=== PATIENT | female | born 1965 | race Caucasian/White ===

== ENCOUNTER 2024-03-26 18:58 | Emergency (ER) | payer SELFPAY ==
[2024-03-26] MEDS ORDERED: FUROSEMIDE 40 MG/4 ML VIAL ONE (20:03)
[2024-03-26] MEDS ORDERED: FUROSEMIDE 20 MG/ 2ML VIAL ONE (20:03)
[2024-03-26 20:36] LABS: Absolute Eosinophils 0.2 K/uL (0-0.5); Absolute Lymphocytes (CBC) 2.5 K/uL (0.7-4.9); Absolute Monocytes 0.7 K/uL (0.1-1.3); Absolute Neutrophil 5.8 K/uL (1.8-8.0); Basophils % 0.5 % (0-1.3); Eosinophils % 2.3 % (0-4.4); Hematocrit 35.3 % (36.0-45.0); Hemoglobin 11.6 g/dL (12.0-15.0); Lymphocytes % 27.3 % (15.3-44.8); MCH 25.4 pg (27.0-35.0); MCHC 32.9 g/dL (32.0-36.0); MCV 77.1 fL (80-100); MPV 7.8 fL (7.6-11.3); Monocytes % 7.4 % (3.3-12.3); Neutrophils % 62.5 % (41.7-73.7); Nucleated Red Blood Cells % 0.1 % (0-0); Platelets 345 thou/uL (152-406); RBC Red Blood Cell Count 4.59 M/uL (3.86-4.86); Red Cell Distribution Width 16.6 % (12.1-15.2)
--- NOTE | 2024-03-26 20:44 | RAD REPORT ---
EXAM DESCRIPTION: RAD - Chest Single View - 03/26/2024 8:38 pm CLINICAL HISTORY: Chest pain;SOB Chest pain. COMPARISON: <Comparisons> FINDINGS: Portable technique limits examination quality. The lungs are grossly clear. The heart is normal in size. No displaced fractures. IMPRESSION: No acute intrathoracic process suspected.
[2024-03-26 20:55] LABS: Magnesium 2.4 mg/dL (1.6-2.4); Troponin High Sensitivity 5.9 pg/mL (<58.9)
[2024-03-26] MEDS ORDERED: POTASSIUM 25 MEQ EFFERV TAB ONE (21:01)
--- NOTE | 2024-03-26 21:40 | ER ---
Nurse's Notes [facility] Name: Irma Xiao Age: 58 yrs Sex: Female : 1965 Arrival Date: 03/26/2024 Time: 18:58 Bed 11 Private MD: Diagnosis: Localized edema;Onychomycosis, left toenails Presentation: 03/26 19:32 Chief complaint: Patient states: Pt c/o swelling from knees to feet in bilateral lower tl4 legs x 'weeks'. Pt states she gets pain when she puts pressure on feet. Pt denies CP, SOB. Coronavirus screen: At this time, the client does not indicate any symptoms associated with coronavirus-19. Ebola Screen: No symptoms or risks identified at this time. Initial Sepsis Screen: Does the patient meet any 2 criteria? No. Patient's initial sepsis screen is negative. Does the patient have a suspected source of infection? No. Patient's initial sepsis screen is negative. Risk Assessment: Do you want to hurt yourself or someone else? Patient reports no desire to harm self or others. Onset of symptoms is unknown. 19:32 Method Of Arrival: Ambulatory tl4 19:32 Acuity: GIANNA 3 tl4 Triage Assessment: 19:37 General: Appears in no apparent distress. Behavior is calm, cooperative. Pain: Denies tl4 pain. EENT: No signs and/or symptoms were reported regarding the EENT system. Neuro: Level of Consciousness is awake, alert, obeys commands, Oriented to person, place, time, situation, Moves all extremities. Full function Gait is steady, Speech is normal. Cardiovascular: Capillary refill < 3 seconds Patient's skin is warm and dry. edema in both lower legs. Respiratory: Airway is patent Respiratory effort is even, unlabored, Respiratory pattern is regular, symmetrical. GI: No signs and/or symptoms were reported involving the gastrointestinal system. : No signs and/or symptoms were reported regarding the genitourinary system. Derm: No signs and/or symptoms reported regarding the dermatologic system. Musculoskeletal: Swelling present in right leg and left leg. Historical: - Allergies: 19:34 No Known Allergies; tl4 - Home Meds: 19:34 levothyroxine 125 mcg capsule 1 cap daily [Active]; losartan oral [Active]; tl4 Hydrochlorothiazide Oral [Active]; escitalopram oxalate oral [Active]; atorvastatin oral [Active]; Primidone Oral [Active]; - PMHx: 19:34 Hypothyroidism; Hypertensive disorder; Anxiety; Hypercholesterolemia; Restless Leg tl4 Syndrome; - Immunization history:: Adult Immunizations unknown. - Infectious Disease History:: Denies. - Social history:: Smoking status: Patient denies any tobacco usage or history of. Screenin:46 [facility] ED Fall Risk Assessment (Adult) History of falling in the last 3 months, mb9 including since admission No falls in past 3 months (0 pts) Confusion or Disorientation No (0 pts) Intoxicated or Sedated No (0 pts) Impaired Gait No (0 pts) Mobility Assist Device Used No (0 pt) Altered Elimination No (0 pt) Score/Fall Risk Level 0 - 2 = Low Risk Oriented to surroundings, Maintained a safe environment, Educated pt \T\ family on fall prevention, incl call for assistance when getting out of bed. Abuse screen: Denies threats or abuse. Nutritional screening: No deficits noted. Tuberculosis screening: No symptoms or risk factors identified. Assessment: 20:10 General: Appears in no apparent distress. Behavior is calm, cooperative. Pain: Denies mb9 pain. Neuro: Richardson Agitation-Sedation Scale (RASS): 0 - Alert and Calm Level of Consciousness is awake, alert, obeys commands, Oriented to person, place, time, situation, Appropriate for age. Cardiovascular: Heart tones S1 S2 present Patient's skin is warm and dry. Cardiovascular: Pulses are 1+ in right posterior tibial artery, right dorsalis pedis artery, left posterior tibial artery and left dorsalis pedis artery Edema pitting to right foot and left foot. Respiratory: Airway is patent Respiratory effort is even, unlabored, Respiratory pattern is regular, symmetrical, Breath sounds are clear bilaterally. GI: No signs and/or symptoms were reported involving the gastrointestinal system. : No signs and/or symptoms were reported regarding the genitourinary system. EENT: No signs and/or symptoms were reported regarding the EENT system. Derm: Skin is pink, warm \T\ dry. Musculoskeletal: Swelling present in right leg and left leg. Vital Signs: 19:32 BP 159 / 77; Pulse 75; Resp 16; Temp 97.6(O); Pulse Ox 99% on R/A; Weight 117.93 kg; tl4 Height 5 ft. 7 in. ; Pain 0/10; 21:53 BP 145 / 75; Pulse 70; Resp 18; Pulse Ox 99% on R/A; mb9 19:32 Body Mass Index 40.72 (117.93 kg, 170.18 cm) tl4 19:32 Pain Scale: Adult tl4 ED Course: 19:05 Patient arrived in ED. im 19:34 Triage completed. tl4 19:40 Arm band placed on right wrist. tl4 19:43 Blanca العلي, TIMMY is Primary Nurse. mb9 19:46 Placed in gown. Bed in low position. Call light in reach. Side rails up X 1. Provided mb9 Education on: press call light if needing anything. Client placed on continuous cardiac and pulse oximetry monitoring. NIBP monitoring applied. 19:54 Carolina Lion PA-C is PHCP. sb4 19:54 Dae Flynn MD is Attending Physician. sb4 20:11 No provider procedures requiring assistance completed. mb9 20:33 Inserted saline lock: 20 gauge in right antecubital area, using aseptic technique. kj2 Blood collected. 20:40 XRAY Chest (1 view) In Process Unspecified. EDMS 20:44 Initial lab(s) drawn, by me, sent to lab. mb9 21:45 IV discontinued, intact, bleeding controlled, No redness/swelling at site. Pressure mb9 dressing applied. Administered Medications: 20:34 Drug: Furosemide IVP 60 mg IVP once; give over 2 minutes Route: IVP; Site: right kj2 antecubital; 21:00 Follow up: Response: No adverse reaction mb9 21:04 Drug: Potassium PO Effervescent Tablet 50 mEq PO once; dissolve in 4 ounces of water or mb9 juice Route: PO; 21:54 Follow up: Response: No adverse reaction mb9 Medication: 19:47 VIS not applicable for this client. mb9 Outcome: 21:39 Discharge ordered by . sb4 21:45 Discharged to home ambulatory, with family, mb9 21:45 Condition: stable 21:45 Discharge instructions given to patient, Instructed on discharge instructions, follow up and referral plans. Demonstrated understanding of instructions, follow-up care, medications, Prescriptions given X 3, 21:53 Patient left the ED. mb9 Signatures: Dispatcher [employer] EDMS Carolina Lion PA-C PA-C sb4 Zohra, Blanca Ayala, RN RN mb9 Lakesha Power Toni, RN RN tl4 Bianca Nolan RN RN kj2
--- NOTE | 2024-03-26 21:40 | EDPHYS ---
Physician Documentation [facility] Name: Irma Xiao Age: 58 yrs Sex: Female : 1965 Arrival Date: 03/26/2024 Time: 18:58 Bed 11 Private MD: MINERVA Physician Dae Flynn HPI: 03/26 20:08 This 58 yrs old Female presents to ER via Ambulatory with complaints of Feet Swelling. sb4 20:08 The patient presents with pain, swelling. The complaints affect the right leg and left sb4 leg. Onset: The symptoms/episode began/occurred at an unknown time. patient states her legs have become progressively swollen over the past few months, now it is causing her a lot of pain. she denies any history of heart or kidney disease. denies swelling like this in the past. states she sometimes gets short of breath with exertion, but believes it is because she is overweight. Historical: - Allergies: 19:34 No Known Allergies; tl4 - Home Meds: 19:34 levothyroxine 125 mcg capsule 1 cap daily [Active]; losartan oral [Active]; tl4 Hydrochlorothiazide Oral [Active]; escitalopram oxalate oral [Active]; atorvastatin oral [Active]; Primidone Oral [Active]; - PMHx: 19:34 Hypothyroidism; Hypertensive disorder; Anxiety; Hypercholesterolemia; Restless Leg tl4 Syndrome; - Immunization history:: Adult Immunizations unknown. - Infectious Disease History:: Denies. - Social history:: Smoking status: Patient denies any tobacco usage or history of. ROS: 20:08 Constitutional: Negative for fever, chills, and weight loss, sb4 20:08 Cardiovascular: Positive for edema, 20:08 All other systems are negative, Exam: 20:08 Constitutional: This is a well developed, well nourished patient who is awake, alert, sb4 and in no acute distress. Head/Face: Normocephalic, atraumatic. Eyes: Extra-ocular motions intact. Periorbital areas with no swelling, redness, or edema. ENT: Mucous membranes moist. Cardiovascular: Regular rate and rhythm with a normal S1 and S2. Respiratory: Lungs have equal breath sounds bilaterally, clear to auscultation and percussion. No rales, rhonchi or wheezes noted. No increased work of breathing, no retractions or nasal flaring. Abdomen/GI: Soft, non-tender, no distension. Skin: Warm, dry with normal turgor. Normal color with no rashes, no lesions, and no evidence of cellulitis. MS/ Extremity: Pulses equal, no cyanosis. Neurovascular intact. Full, normal range of motion. 20:08 Cardiovascular: Edema: 3+ edema to level of left midcalf, left ankle, left foot, left toes, right midcalf, right ankle, right foot and right toes, Vital Signs: 19:32 BP 159 / 77; Pulse 75; Resp 16; Temp 97.6(O); Pulse Ox 99% on R/A; Weight 117.93 kg; tl4 Height 5 ft. 7 in. ; Pain 0/10; 21:53 BP 145 / 75; Pulse 70; Resp 18; Pulse Ox 99% on R/A; mb9 19:32 Body Mass Index 40.72 (117.93 kg, 170.18 cm) tl4 19:32 Pain Scale: Adult tl4 MDM: 19:54 Patient medically screened. sb4 21:08 Data reviewed: vital signs, nurses notes, lab test result(s), radiologic studies, and sb4 as a result, I will discharge patient. Counseling: I had a detailed discussion with the patient and/or guardian regarding the historical points, exam findings, and any diagnostic results supporting the discharge/admit diagnosis, lab results, radiology results, the need for outpatient follow up, for definitive care, to return to the emergency department if symptoms worsen or persist or if there are any questions or concerns that arise at home. 03/26 20:02 Order name: Basic Metabolic Panel; Complete Time: 20:56 sb4 03/26 20:02 Order name: CBC with Diff; Complete Time: 20:38 sb4 03/26 20:02 Order name: Magnesium; Complete Time: 20:56 sb4 03/26 20:02 Order name: NT PRO-BNP; Complete Time: 20:56 sb4 03/26 20:02 Order name: Troponin HS; Complete Time: 20:56 sb4 03/26 20:02 Order name: XRAY Chest (1 view); Complete Time: 20:44 sb4 03/26 20:02 Order name: Cardiac monitoring; Complete Time: 20:03 sb4 03/26 20:02 Order name: IV Saline Lock; Complete Time: 20:10 sb4 03/26 20:02 Order name: Labs collected and sent; Complete Time: 20:10 sb4 Administered Medications: 20:34 Drug: Furosemide IVP 60 mg IVP once; give over 2 minutes Route: IVP; Site: right kj2 antecubital; 21:00 Follow up: Response: No adverse reaction mb9 21:04 Drug: Potassium PO Effervescent Tablet 50 mEq PO once; dissolve in 4 ounces of water or mb9 juice Route: PO; 21:54 Follow up: Response: No adverse reaction mb9 Disposition: 03/27 04:17 Co-signature as Attending Physician, Dae Flynn MD I agree with the assessment and heri plan of care. Disposition Summary: 03/26/24 21:39 Discharge Ordered Notes: Location: Home sb4 Problem: an ongoing problem sb4 Symptoms: have improved sb4 Condition: Stable sb4 Diagnosis - Localized edema sb4 - Onychomycosis, left toenails sb4 Followup: sb4 - With: Private Physician - When: 1 week - Reason: Recheck today's complaints, Re-evaluation by your physician Discharge Instructions: - Discharge Summary Sheet sb4 - Fungal Nail Infection sb4 - Peripheral Edema sb4 Forms: - Patient Portal Instructions sb4 - Leadership Thank You Letter sb4 Prescriptions: - furosemide 40 mg Oral tablet - take 1 tablet ORAL route every morning as needed for edema; 10 tablet; Refills: sb4 0, Product Selection Permitted - efinaconazole 10 % Topical solution with applicator - apply 1 application TOPICAL route every day at bedtime; 8 milliliter; Refills: sb4 0, Product Selection Permitted - Potassium Chloride 10 mEq Oral Tablet - take 1 tablet ORAL route every 12 hours; 30 tablet; Refills: 0, Product sb4 Selection Permitted Signatures: Dispatcher [employer] Dae Willis MD MD cha Brown, Sophia, PA-C PALoretta sb4 Blanca العلي RN RN mb9 Desmond Reyes RN RN tl4 Bianca Nolan RN RN kj2
[2024-03-26 22:01] VITALS: BP 145/75; TEMP 97.6; O2SAT 99
== END 2024-03-26 21:53 | disposition home or self-care (01) ==
LOC: ER 18:58
DX: R60.0 Localized edema (principal); B35.1 Tinea unguium
CPT/HCPCS: 36415; 71045; 80048; 83735; 83880; 84484; 85025; 96374; 99284; J1940

== ENCOUNTER 2024-06-27 12:11 | Emergency (ER) | payer SELFPAY ==
[2024-06-27] MEDS ORDERED: IBUPROFEN 200 MG TAB PO ONE (14:28)
[2024-06-27] MEDS ORDERED: TDAP (DIPHTH,PERTUSS(ACELL),TET VAC) 0.5 ML VIAL IMVAC ONE (14:28)
--- NOTE | 2024-06-27 14:52 | RAD REPORT ---
EXAM: Foot Left 3 View HISTORY: PAIN COMPARISON: None FINDINGS: Bones: No acute fracture identified. Well-defined sclerotic lesion at the metadiaphysis of the fourth metatarsal is of doubtful significance and may be a bone island or other benign etiology. Alignment:No significant malalignment. Degenerative changes:Calcaneal spurs. Other: n/a IMPRESSION: No evidence of acute osseous abnormality involving the imaged foot.
--- NOTE | 2024-06-27 14:54 | RAD REPORT ---
EXAM: Hand Right 3 View HISTORY: PAIN COMPARISON: None FINDINGS: Bones: No acute fracture identified. Alignment:No significant malalignment. Degenerative changes:Degenerative changes are present at the third DIP joint which are [id number]. The other DIP and interphalangeal joints are mildly narrowed. Other: n/a IMPRESSION: No evidence of acute osseous abnormality involving the imaged hand.
--- NOTE | 2024-06-27 15:28 | EDPHYS ---
Physician Documentation [facility] Name: Irma Xiao Age: 59 yrs Sex: Female : 1965 Arrival Date: 06/27/2024 Time: 12:11 Bed 10 Private MD: ED Physician Dae Flynn HPI: 06/27 15:21 This 59 yrs old Female presents to ER via Ambulatory with complaints of Fall heri Injury. 15:21 Details of fall: The patient fell from an upright position, while walking. Onset: The heri symptoms/episode began/occurred this morning. Associated injuries: The patient sustained right hand and left foot, painful injury, swelling. Severity of symptoms: At their worst the symptoms were mild, moderate, in the emergency department the symptoms are unchanged. The patient has not experienced similar symptoms in the past. Historical: - Allergies: 12:32 No Known Allergies; cm10 - Home Meds: 14:59 atorvastatin oral [Active]; escitalopram oxalate oral [Active]; Hydrochlorothiazide tl4 Oral [Active]; Primidone Oral [Active]; levothyroxine 125 mcg capsule 1 cap daily [Active]; losartan oral [Active]; - PMHx: 12:32 Anxiety; Hypercholesterolemia; Hypertensive disorder; Hypothyroidism; restless leg cm10 syndrome; - Immunization history:: Adult Immunizations up to date. - Infectious Disease History:: Denies. - Social history:: Smoking status: Patient denies any tobacco usage or history of. ROS: 15:23 Constitutional: Negative for fever, chills, and weight loss, Eyes: Negative for injury, heri pain, redness, and discharge, ENT: Negative for injury, pain, and discharge, Neck: Negative for injury, pain, and swelling, Cardiovascular: Negative for chest pain, palpitations, and edema, Respiratory: Negative for shortness of breath, cough, wheezing, and pleuritic chest pain, Abdomen/GI: Negative for abdominal pain, nausea, vomiting, diarrhea, and constipation, Back: Negative for injury and pain, : Negative for injury, bleeding, discharge, and swelling, Skin: Negative for injury, rash, and discoloration, Neuro: Negative for headache, weakness, numbness, tingling, and seizure, Psych: Negative for depression, anxiety, suicide ideation, homicidal ideation, and hallucinations, Allergy/Immunology: Negative for hives, rash, and allergies, Endocrine: Negative for neck swelling, polydipsia, polyuria, polyphagia, and marked weight changes, Hematologic/Lymphatic: Negative for swollen nodes, abnormal bleeding, and unusual bruising, 15:23 MS/extremity: Positive for pain, of the right hand and left foot, Exam: 15:23 Constitutional: This is a well developed, well nourished patient who is awake, alert, heri and in no acute distress. Head/Face: Normocephalic, atraumatic. Eyes: Pupils equal round and reactive to light, extra-ocular motions intact. Lids and lashes normal. Conjunctiva and sclera are non-icteric and not injected. Cornea within normal limits. Periorbital areas with no swelling, redness, or edema. ENT: Nares patent. No nasal discharge, no septal abnormalities noted. Tympanic membranes are normal and external auditory canals are clear. Oropharynx with no redness, swelling, or masses, exudates, or evidence of obstruction, uvula midline. Mucous membranes moist. Neck: Trachea midline, no thyromegaly or masses palpated, and no cervical lymphadenopathy. Supple, full range of motion without nuchal rigidity, or vertebral point tenderness. No Meningismus. Chest/axilla: Normal chest wall appearance and motion. Nontender with no deformity. No lesions are appreciated. Cardiovascular: Regular rate and rhythm with a normal S1 and S2. No gallops, murmurs, or rubs. Normal PMI, no JVD. No pulse deficits. Respiratory: Lungs have equal breath sounds bilaterally, clear to auscultation and percussion. No rales, rhonchi or wheezes noted. No increased work of breathing, no retractions or nasal flaring. Abdomen/GI: Soft, non-tender, with normal bowel sounds. No distension or tympany. No guarding or rebound. No evidence of tenderness throughout. Back: No spinal tenderness. No costovertebral tenderness. Full range of motion. Female : Normal external genitalia. Skin: Warm, dry with normal turgor. Normal color with no rashes, no lesions, and no evidence of cellulitis. Neuro: Awake and alert, GCS 15, oriented to person, place, time, and situation. Cranial nerves II-XII grossly intact. Motor strength 5/5 in all extremities. Sensory grossly intact. Cerebellar exam normal. Normal gait. Psych: Awake, alert, with orientation to person, place and time. Behavior, mood, and affect are within normal limits. 15:23 Musculoskeletal/extremity: Extremities: noted in the right hand and left foot: decreased ROM, pain, Vital Signs: 12:30 BP 160 / 78; Pulse 100; Resp 16; Temp 98.5; Pulse Ox 98% on R/A; Weight 120.2 kg; cm10 Height 5 ft. 7 in. ; Pain 5/10; 14:57 BP 117 / 79; Pulse 73; Resp 18; Pulse Ox 100% on R/A; tl4 15:44 BP 115 / 75; Pulse 69; Resp 18; Temp 98.3(O); Pulse Ox 98% on R/A; Pain 4/10; tl4 12:30 Body Mass Index 41.50 (120.20 kg, 170.18 cm) cm10 12:30 Pain Scale: Adult cm10 15:44 Pain Scale: Adult tl4 MDM: 12:22 Patient medically screened. [facility] 06/27 14:12 Order name: Hand Right 3 View XRAY; Complete Time: 15:18 [facility] 06/27 14:12 Order name: Foot Left 3 View XRAY; Complete Time: 15:18 [facility] 06/27 14:12 Order name: Ice pack; Complete Time: 14:26 [facility] 06/27 15:19 Order name: Post-op shoe; Complete Time: 15:43 [facility] Administered Medications: 15:00 Drug: Ibuprofen PO 600 mg PO once Route: PO; tl4 15:24 Follow up: Response: No adverse reaction; Pain is decreased tl4 15:01 Drug: Boostrix Tdap IM 0.5 ml IM once; as a single dose Route: IM; Site: left deltoid; tl4 15:24 Follow up: Response: No adverse reaction tl4 Disposition Summary: 06/27/24 15:27 Discharge Ordered Notes: Location: Home heri Problem: new heri Symptoms: have improved heri Condition: Stable heri Diagnosis - Fall on same level, unspecified heri - Contusion of right hand heri - Contusion of left foot heri Followup: heri - With: Private Physician - When: 2 - 3 days - Reason: Recheck today's complaints, Continuance of care, Re-evaluation by your physician Followup: heri - With: Roney Watkins MD - When: 2 - 3 days - Reason: Recheck today's complaints, Re-evaluation by your physician Discharge Instructions: - Discharge Summary Sheet heri - Contusion heri - Fall Prevention in the Home, Adult heri - Musculoskeletal Pain heri - Contusion, [id number] heri - Fall Prevention in the Home, Adult, [id number] [facility] Forms: - Medication Reconciliation Form heri - Antibiotic Education heri - Prescription Opioid Use heri - Patient Portal Instructions [facility] - Leadership Thank You Letter [facility] Prescriptions: - acetaminophen-codeine 300-30 mg Oral tablet - take 2 tablet ORAL route every 6 hours; 20 tablet; Refills: 0, Product heri Selection Permitted - diclofenac sodium 50 mg Oral tablet, delayed release (enteric coated) - take 1 tablet ORAL route every 12 hours; 20 tablet; Refills: 0, Product heri Selection Permitted - Cyclobenzaprine 5 mg Oral Tablet - take 1 tablet ORAL route 3 times per day As needed; 15 tablet; Refills: 0, [facility] Product Selection Permitted Signatures: Dispatcher [employer] Dae Willis MD MD cha Martinez, Clarissa, RN RN cm10 Desmond Reyes RN RN tl4
--- NOTE | 2024-06-27 15:28 | ER ---
Nurse's Notes [facility] Name: Irma Xiao Age: 59 yrs Sex: Female : 1965 Arrival Date: 06/27/2024 Time: 12:11 Bed 10 Private MD: Diagnosis: Fall on same level, unspecified;Contusion of right hand;Contusion of left foot Presentation: 06/27 12:30 Chief complaint: Patient states: Mechanical fall today when she was walking out the cm10 door. pt has noted abrasions to right hand, pain to right hip and pain to left foot. Pt did not hit her head, no LOC. Coronavirus screen: Client denies travel out of the [place] in the last 14 days. Ebola Screen: Patient denies travel to an Ebola-affected area in the 21 days before illness onset. No symptoms or risks identified at this time. Initial Sepsis Screen: Does the patient meet any 2 criteria? HR > 90 bpm. Does the patient have a suspected source of infection? No. Patient's initial sepsis screen is negative. Risk Assessment: Do you want to hurt yourself or someone else? Patient reports no desire to harm self or others. Onset of symptoms was June 27, 2024. 12:30 Method Of Arrival: Ambulatory cm10 12:30 Acuity: GIANNA 4 cm10 Triage Assessment: 12:32 General: Appears in no apparent distress. comfortable, Behavior is calm, cooperative. cm10 Neuro: No deficits noted. Level of Consciousness is awake, alert, obeys commands, Oriented to person, place, time, situation, Appropriate for age. Respiratory: No deficits noted. Airway is patent Respiratory effort is even, unlabored, Respiratory pattern is regular, symmetrical. Musculoskeletal: Reports pain in left foot and right hip. Historical: - Allergies: 12:32 No Known Allergies; cm10 - Home Meds: 14:59 atorvastatin oral [Active]; escitalopram oxalate oral [Active]; Hydrochlorothiazide tl4 Oral [Active]; Primidone Oral [Active]; levothyroxine 125 mcg capsule 1 cap daily [Active]; losartan oral [Active]; - PMHx: 12:32 Anxiety; Hypercholesterolemia; Hypertensive disorder; Hypothyroidism; restless leg cm10 syndrome; - Immunization history:: Adult Immunizations up to date. - Infectious Disease History:: Denies. - Social history:: Smoking status: Patient denies any tobacco usage or history of. Screenin:[address] [facility] ED Fall Risk Assessment (Adult) History of falling in the last 3 months, tl4 including since admission Yes- single mechanical fall (1 pt) Confusion or Disorientation No (0 pts) Intoxicated or Sedated No (0 pts) Impaired Gait No (0 pts) Mobility Assist Device Used No (0 pt) Altered Elimination No (0 pt) Score/Fall Risk Level 0 - 2 = Low Risk Oriented to surroundings, Maintained a safe environment, Educated pt \T\ family on fall prevention, incl call for assistance when getting out of bed, Assessed \T\ reinforced patient's understanding of fall precautions. Abuse screen: Denies threats or abuse. Denies injuries from another. Nutritional screening: No deficits noted. Tuberculosis screening: No symptoms or risk factors identified. Assessment: 14:55 General: Appears in no apparent distress. Behavior is calm, cooperative. Pain: tl4 Complains of pain in left foot and right leg and right hip. Neuro: Level of Consciousness is awake, alert, obeys commands, Oriented to person, place, time, situation, Speech is normal, Facial symmetry appears normal. Cardiovascular: Capillary refill < 3 seconds Patient's skin is warm and dry. Respiratory: Airway is patent Respiratory effort is even, unlabored, Respiratory pattern is regular, symmetrical, Breath sounds are clear bilaterally. GI: No signs and/or symptoms were reported involving the gastrointestinal system. : No signs and/or symptoms were reported regarding the genitourinary system. EENT: No signs and/or symptoms were reported regarding the EENT system. Derm: No signs and/or symptoms reported regarding the dermatologic system. Derm: Bruising that is dark purple. Musculoskeletal: Circulation, motion, and sensation intact. Reports pain in left foot and right leg and right hip. Vital Signs: 12:30 BP 160 / 78; Pulse 100; Resp 16; Temp 98.5; Pulse Ox 98% on R/A; Weight 120.2 kg; cm10 Height 5 ft. 7 in. ; Pain 5/10; 14:57 BP 117 / 79; Pulse 73; Resp 18; Pulse Ox 100% on R/A; tl4 15:44 BP 115 / 75; Pulse 69; Resp 18; Temp 98.3(O); Pulse Ox 98% on R/A; Pain 4/10; tl4 12:30 Body Mass Index 41.50 (120.20 kg, 170.18 cm) cm10 12:30 Pain Scale: Adult cm10 15:44 Pain Scale: Adult tl4 ED Course: 12:15 Patient arrived in ED. sj2 12:22 Dae Flynn MD is Attending Physician. heri 12:32 Triage completed. cm10 12:32 Arm band placed on right wrist. Patient placed in waiting room. cm10 14:26 Desmond Reyes, TIMMY is Primary Nurse. tl4 14:46 Hand Right 3 View XRAY In Process Unspecified. EDMS 14:46 Foot Left 3 View XRAY In Process Unspecified. EDMS 14:58 Patient has correct armband on for positive identification. Bed in low position. Call tl4 light in reach. Side rails up X 1. Provided Education on: ed process, call haney. Client placed on continuous cardiac and pulse oximetry monitoring. NIBP monitoring applied. Door closed. Noise minimized. Lights dimmed. Moved to private room. Warm blanket given. 14:59 No provider procedures requiring assistance completed. Patient did not have IV access tl4 during this emergency room visit. 15:25 Roney Watkins MD is Referral Physician. heri 15:25 Warm blanket given. tl4 15:44 Ortho shoe applied to left foot. tl4 Administered Medications: 15:00 Drug: Ibuprofen PO 600 mg PO once Route: PO; tl4 15:24 Follow up: Response: No adverse reaction; Pain is decreased tl4 15:01 Drug: Boostrix Tdap IM 0.5 ml IM once; as a single dose Route: IM; Site: left deltoid; tl4 15:24 Follow up: Response: No adverse reaction tl4 Medication: 14:58 Vaccine Information Statement (VIS) provided today. Questions and/or concerns tl4 addressed. VIS edition date: April 26, 2021. Outcome: 15:27 Discharge ordered by . heri 15:44 Discharged to home ambulatory, tl4 15:44 Condition: stable 15:44 Discharge instructions given to patient, Instructed on discharge instructions, follow up and referral plans. splint use and care Demonstrated understanding of instructions, follow-up care, medications, splint care, Prescriptions given X 3, 16:27 Patient left the ED. tl4 Signatures: Dispatcher [employer] EDMS Dae Flynn MD MD heri Eitan, Bebe, RN RN cm10 Desmond Reyes RN RN tl4 [facility]
[2024-06-27 17:09] VITALS: BP 115/75; TEMP 98.3; O2SAT 98
== END 2024-06-27 16:27 | disposition home or self-care (01) ==
LOC: ER 12:11
DX: S60.221A Contusion of right hand, initial encounter (principal); S90.32XA Contusion of left foot, initial encounter; W18.30XA Fall on same level, unspecified, initial encounter
CPT/HCPCS: 96372; 99284